=== PATIENT | male | born 2000 | race Caucasian/White ===

== ENCOUNTER 2020-12-29 20:37 | Emergency (ER) | payer OTHER ==
[~2020-12-29] VITALS: Ht 180.3 cm; Wt 79.8 kg
[2020-12-29] MEDS ORDERED: MUCINEX DM ER1 EAC1 PO (22:42)
[2020-12-29] MEDS ORDERED: ZYRTEC10 MG PO (22:42)
[2020-12-29] MEDS ORDERED: FLONASE16 GM IH (22:42)
[2020-12-29] MEDS ORDERED: MEDROLPACK PO (22:42)
== END 2020-12-29 22:49 | disposition home or self-care (01) ==
LOC: ER 20:37
DX: J30.89 Other allergic rhinitis (principal); J06.9 Acute upper respiratory infection, unspecified; J32.8 Other chronic sinusitis

== ENCOUNTER 2021-12-26 19:01 | Emergency (ER) | payer OTHER ==
[~2021-12-26] VITALS: Ht 180.3 cm; Wt 79.4 kg
[~2021-12-26 19:01] MED LIST: FLONASE16 GM IH; MEDROLPACK PO; MUCINEX DM ER1 EAC1 PO; ZYRTEC10 MG PO
== END 2021-12-26 21:19 | disposition home or self-care (01) ==
LOC: ER 19:01
DX: R51.9 Headache, unspecified (principal); Z20.822 Contact with and (suspected) exposure to COVID-19